=== PATIENT | female | born 1990 | race Caucasian/White ===

== ENCOUNTER 2019-05-26 08:32 | Inpatient (IN) | payer OTHER, SELFPAY ==
[2019-05-26] VITALS (83 sets, daily range): BP systolic 116–160; BP diastolic 61–101; PULSE 90–132; RESP 18; TEMP 36.6–37.5; O2SAT 98–100; BMI 37.0
[2019-05-26] MEDS: LACTATED RINGERS 1,000 ML 125 ML IV CONT ×3 (09:21→12:31)
[2019-05-26 09:35] LABS: Basophils Percent Auto 0.2 % (0.2-1.2); Eosinophils Absolute Auto 0.1 K/mm3 (0-0.3); Eosinophils Percent Auto 0.4 % (0-4.4); Hematocrit 33.4 % (37.0-47.0); Immature Granulocyte Percent A 0.8 % (0-0.5); Lymphocytes Absolute Auto 1.71 K/mm3 (0.9-3.2); Lymphocytes Percent Auto 12.9 % (18.3-44.2); Mean Corpuscular HGB Conc 32.9 g/dl (32-36); Mean Corpuscular Volume 81.9 fl (80-100); Mean Platelet Volume 11.4 fl (7.4-10.4); Monocytes Absolute Auto 0.8 K/mm3 (0.1-0.6); Monocytes Percent Auto 5.7 % (2.6-8.5); Neutrophils Absolute Auto 10.6 K/mm3 (1.3-6.7); Platelet Count Result 216 k/mm3 (150-375); Red Blood Count 4.08 M/mm3 (4.2-5.4); Red Cell Distribution Width 13.7 % (11.5-14.5); White Blood Count 13.2 K/mm3 (4.5-10.0)
--- NOTE | 2019-05-26 11:38 | WPDOBADMIT ---
Obstetrics - Admit Note Admission Note: record reviewed. Pertinent additions to the history and/or any subsequent changes in the physical findings that are not consistent with the expected course of the were found. Additions to the history and/or subsequent changes in the physical findings follow. 28 yo comes to L & D at 39 weeks 6 days, confirmed by MAYURI of 05/27/2019 in labor complicated with hypothyroidism, anxiety.GBS negative AROM performed Cx: /-1 comfortable with epidural status reassuring Expectant managmenty of labor
[2019-05-26] MEDS: MISOPROSTOL 200 MCG TABLET 1000 MCG (14:00)
--- NOTE | 2019-05-26 14:04 | PM.OBPRVD ---
OB - Delivery Note Procedure Delivery date: 05/26/19 Intrapartal events: None Induction method: none Delivery augmentation: rupture of membranes Delivery monitor: external FHT and external uterine Route of delivery: Laceration description: Vaginal - 2nd Degree (left side sulcus tear) Delivery repair: vicryl (3-0) Specimen: Yes Estimated blood loss (mL): 600 Anesthesia type: Epidural Disposition: floor Complications: PPH Baby Date of : 05/26/19 Weeks of gestation at delivery: 39 gender: Female Weight (pounds): 8 Weight (ounces): 10 presentation: vertex position: Left Occiput Anterior Placenta delivery description: Spontaneous cord vessel description: 3 Vessels and Nuchal Cord (x 1) score one minute: 8 score five minutes: 9
--- NOTE | 2019-05-26 14:09 | PM.OBDSVD ---
DS: Diagnosis Admitting Diagnosis Admitting Diagnosis: Labor OB - DS: Summary OB Procedures : None OB Procedures Intrapartum: Spontaneous Vag Delivery and Other (PPH. blood loss 600 ml) OB Procedures: : None Peripartum Data Delivery Method: Natural Vaginal Laceration description: Vaginal - 2nd Degree (left vaginal sulcus tear) complications: none Time Spent with Patient Time attestation: Total time spent providing and/or coordinating discharge services: DS: Data Data Completed and Pending Labs on day of discharge: Labs from last 24 hours 05/26/19 05/26/19 05/26/19 08:54 08:53 08:53 WBC 13.2 H RBC 4.08 L Hgb 11.0 L Hct 33.4 L MCV 81.9 MCH 27.0 MCHC 32.9 RDW 13.7 Plt Count 216 MPV 11.4 H Immature Gran % (Auto) 0.8 H Neut % (Auto) 80.0 H Lymph % (Auto) 12.9 L [place] % (Auto) 5.7 Eos % (Auto) 0.4 Baso % (Auto) 0.2 Lymph # (Auto) 1.71 [place] # (Auto) 0.8 H Eos # (Auto) 0.1 Baso # (Auto) 0.0 Abs Immat Gran (auto) 0.10 H Absolute Neuts (auto) 10.6 H Absolute Nucleated RBC 0.0 Nucleated RBC % 0.0 RPR Pending Blood Type O Positive Antibody Screen Negative Discharge Plan Discharge Discharge Medications: No Action citalopram 10 mg Tablet 10 mg PO DAILY RF: 0 levothyroxine 50 mcg Tablet 50 mcg PO DAILY RF: 0 PNV cmb#[id number]-ferrous fumarate-FA [] 28 mg iron- 800 mcg Tablet 1 tablet PO DAILY RF: 0 Date of admission: 05/26/19 08:32 Primary Care Provider: Rashard Mejia Admitting Provider: Rashard Mejia Attending physician on admission: Rashard Mejia
[2019-05-26] MEDS: BENZOCAINE 20% AER SPR (*SP) 56 GM CAN 1 SPRAY TOPICAL (17:09)
[2019-05-26] MEDS: IBUPROFEN 600 MG TABLET PO (17:10)
[2019-05-26] MEDS: DOCUSATE SODIUM 100 MG CAPSULE PO (17:10)
[2019-05-26] MEDS: DIBUCAINE 1% OINTMENT 30 GM TUBE 1 APPLIC TOPICAL (17:10)
[2019-05-26] MEDS: WITCH HAZEL 40 PADS 1 PAD TOPICAL (17:11)
[2019-05-26] MEDS: LANOLIN (LANSINOH) 7.5 GM CREAM 1 APPLIC TOPICAL (17:11)
--- NOTE | 2019-05-26 17:32 | NBADM ---
Patient transferred to post room #283 per julian. Support person present. Oriented to unit, room, information board, rooming in, admission packet and security measures. Patient verbalizes understanding.
[2019-05-27] MEDS: IBUPROFEN 600 MG TABLET PO ×3 (04:57→21:41)
[2019-05-27 06:03] LABS: Hematocrit 28.6 % (37.0-47.0); Hemoglobin 9.2 g/dL (12.0-15.0)
--- NOTE | 2019-05-27 07:39 | WPDANLDPN2 ---
Anes-Prog Note L&D Date/Time: 05/27/19 07:39 Comfortable throughout: labor and delivery Neuraxial method: epidural Epidural/Spinal procedure site: clean & non-tender Neuro status: Neuro function grossly intact. Cardiovascular status: normal Respiratory status: normal Airway patency: baseline Mental status: baseline Post-Op hydration status: normal Vital Signs: Last Vital Signs Temp 37.3 C 05/26/19 20:06 Pulse 90 05/26/19 20:06 Resp 18 05/26/19 20:06 BP 135/71 05/26/19 20:06 Pulse Ox 99 05/26/19 20:06 I/O: Intake & Output 05/26/19 05/26/19 05/27/19 15:59 23:59 07:59 Intake Total 2500 1000 Output Total 600 Balance 1900 1000 Post-procedural complaints: none Patient feedback: Patient satisfied with anesthetic care.
--- NOTE | 2019-05-27 08:00 | PC.NURSE ---
PT introductions made and plan of care discussed per post , pain management, breast feeding, daily care activities. PT verbalized understanding of such care.
[2019-05-27 08:15] VITALS: BP 147/87; PULSE 103; RESP 16; TEMP 37.1; O2SAT 98
--- NOTE | 2019-05-27 08:16 | PM.OBPNVD ---
OB - PN: Subj Subjective Date/time seen: 05/27/19 08:16 Patient comments: pain well controlled and tolerating diet [place] baby status: doing well and nursing well [place] feeding status: exclusively breast feeding OB - PN: Obj Data Labs CBC & Chem 7: 05/27/19 04:43 Labs: Laboratory Results - last 24 hr 05/26/19 05/26/19 05/27/19 08:53 08:54 04:43 WBC 13.2 H RBC 4.08 L Hgb 11.0 L 9.2 L Hct 33.4 L 28.6 L MCV 81.9 MCH 27.0 MCHC 32.9 RDW 13.7 Plt Count 216 MPV 11.4 H Immature Gran % (Auto) 0.8 H Neut % (Auto) 80.0 H Lymph % (Auto) 12.9 L [place] % (Auto) 5.7 Eos % (Auto) 0.4 Baso % (Auto) 0.2 Lymph # (Auto) 1.71 [place] # (Auto) 0.8 H Eos # (Auto) 0.1 Baso # (Auto) 0.0 Abs Immat Gran (auto) 0.10 H Absolute Neuts (auto) 10.6 H Absolute Nucleated RBC 0.0 Nucleated RBC % 0.0 Blood Type O Positive Antibody Screen Negative OB - PN A/P Plan day: 1 Plan: routine care Time Spent With Patient Time: Total time spent is greater than 50% in coordination of care (as documented) at patient's floor/unit and/or counseling patient: Time with patient: less than 15 minutes Review of Systems Constitutional: Constitutional: Reports no additional constitutional complaints Cardiovascular: Cardiovascular: Reports no additional cardiovascular complaints Respiratory: Respiratory: Reports no additional respiratory complaints Gastrointestinal: Gastrointestinal: Reports no additional gastrointestinal complaints Exam Const: General: comfortable, no acute distress, alert and awake Resp: Effort & Inspection: normal respiratory effort Cardio: Rate: regular rate GI: Auscultation: normal bowel sounds
[2019-05-27] MEDS: POLYSACCHARIDE IRON COMPLEX 150 MG CAPSULE PO ×2 (08:28→18:18)
[2019-05-27] MEDS: MULTIVIT/MIN/PREN/FOL AC/IRON TABLET 1 TAB PO (08:28)
[2019-05-27] MEDS: DOCUSATE SODIUM 100 MG CAPSULE PO ×2 (08:29→18:18)
[2019-05-27 09:00] LABS: Rapid Plasma Reagin Non-Reactive (NonReactive)
--- NOTE | 2019-05-27 14:00 | PC.NURSE ---
Consulted with patient, mother reports she did not breastfeed first due to spinal headache. was sleepy and not eager to latch. Mother is pleased this infant is eagerly latching. Reviewed feeding cues, frequencies, duration of feedings, feeding elimination flow sheet, and signs of adequate intake. Demonstrated stimulation techniques to wake for feeding. Assisted with to breast. Reviewed positioning/alignment cross cradle, holding breast in U hold and guided asymmetrical latch on. Several attempts before infant was able to latch correctly. Infant was on and off at the beginning of the feeding, crying and making eager attempts. Observed infant may have a tight frenulum. Small amount of sweet ease to nipple and infant tongue to start latch. Within a few attempts, was able to latch correctly. nursed eagerly, with steady draws and occasional swallowing noted. Reviewed signs of a correct latch, effective nursing and suck swallow ratio. would slip down to shallow latch with short chewy suckling. Demonstrated how to adjust latch more deeply while feeding. Infant was able to maintain latch without discomfort to mother. Nipple care reviewed. Advised to stimulate during feeding to keep infant awake and effectively nursing and to hold breast during entire feeding to assist with maintaining deep latch. Instructed mother to call out for RN assistance if she is unable to latch infant for feeding or she has discomfort with nursing. Instructed feeding should be initiated three hours from start of last feeding or if feeding cues are noted before. Mother voiced understanding of information shared.
[2019-05-27 21:30] VITALS: BP 133/74; PULSE 90; RESP 14; TEMP 37; O2SAT 100
--- NOTE | 2019-05-28 07:00 | PC.NURSE ---
PT introductions made and plan of care discussed per post , pain management, breast feeding, daily care activities and pending discharge to home. PT verbalized understanding of such care.
[2019-05-28 08:55] VITALS: BP 144/91; PULSE 96; RESP 16; TEMP 36.6; O2SAT 100
--- NOTE | 2019-05-28 09:45 | PC.NURSE ---
Consult with pt., mother report she continues to struggle with latching and maintaining latch. Mother is tearful she has initiated supplementation. Assured mother to continue with supplementation as infant requires. Milk should transition in within a few days and may resolve fussiness with latch and feeding. Mother states will latch and draw back releasing latch several times during feeding. Suggested mother offer small amounts of supplement to calm and entice then transition to breast. Parents are comfortable and acknowledge feeding plan is doable at home. Mother will continue to latch each feeding using nipple shield, FOB will supplement while she pumps. Mother will offer EBM as part of next feedings supplementation. Advised to limit attempt/feeding to 15 minutes, then supplement ( increasing supplement as infant requires)and pump. Discussed when is more consistent and steady with nursing mother will then begin to decrease supplementation. Mother understands she may call or return for assist with LC as needed. Mother will discuss tongue frenulum with her ICP for possible frenulectomy. Mother is feeding as required and waking to feed if needed. Infant is currently meeting outcomes for weight, output, jaundice and feeding frequencies. Mother states she feels confident to continue above feeding plan at home. Reviewed transition to breast milk, signs of adequate intake, and engorgement/relief. Instructed to call ICP if intake/output less than required. Reviewed regular medications mother is taking. Information provided per Nisa. Reviewed community resources on the [employer] website and in the Mom/Baby guide. Information on outpatient services provided. Mother has no further questions at this time.
[2019-05-28 10:00] VITALS: PULSE 96; RESP 16; O2SAT 100
[2019-05-28] MEDS: LEVOTHYROXINE SODIUM 50 MCG TABLET PO (10:00)
[2019-05-28] MEDS: CITALOPRAM HYDROBROMIDE 10 MG TABLET PO (10:05)
[2019-05-28] MEDS: MULTIVIT/MIN/PREN/FOL AC/IRON TABLET 1 TAB PO (10:05)
[2019-05-28] MEDS: DOCUSATE SODIUM 100 MG CAPSULE PO (10:05)
[2019-05-28] MEDS: POLYSACCHARIDE IRON COMPLEX 150 MG CAPSULE PO (10:05)
[2019-05-28] MEDS: IBUPROFEN 600 MG TABLET PO (10:06)
[2019-05-28] MEDS: BENZOCAINE 20% AER SPR (*SP) 56 GM CAN 1 SPRAY TOPICAL (10:09)
[2019-05-28] MEDS: WITCH HAZEL 40 PADS 1 PAD TOPICAL (10:09)
[2019-05-28 13:29] VITALS: BP 114/67; PULSE 88; RESP 17; TEMP 37.2; O2SAT 99
--- NOTE | 2019-05-28 13:56 | PC.NURSE ---
On 05/28/19, the student, [ Chase Fong], provided care and completed [facility] documentation on this patient. I have reviewed the student's documentation and agree with the findings.
--- NOTE | 2019-05-28 14:00 | PC.NURSE ---
PT received discharge instructions per protocol and verbalized understanding of such instructions.
--- NOTE | 2019-05-28 14:46 | PC.NURSE ---
PT discharged to home ambulatory accompanied by spouse and and taken to waiting car. Follow up appts confirmed
[2019-05-29 10:50] VITALS: BP 136/86; PULSE 94; RESP 20; TEMP 36.6; O2SAT 100
== END 2019-05-28 14:46 | disposition home or self-care (01) | DRG 807 ==
LOC: ANHLDR 09:04 → ANHOB2 16:49
PROVIDERS: Admitting Provider Obstetrics & Gynecology; PCP Obstetrics & Gynecology; Visit Provider Obstetrics & Gynecology
DX: O99.284 Endocrine, nutritional and metabolic diseases complicating childbirth (principal); Z37.0 Single live birth; Z3A.39 39 weeks gestation of pregnancy; E03.9 Hypothyroidism, unspecified; O99.344 Other mental disorders complicating childbirth; F41.9 Anxiety disorder, unspecified; O70.1 Second degree perineal laceration during delivery; O69.81X0 Labor and delivery complicated by cord around neck, without compression, not applicable or unspecified
CPT/HCPCS: 36415; 85014; 85018; 85025; 86592; 86850; 86900; 86901; A9270; J2590; J2795; J3010; J7120

== ENCOUNTER 2024-10-08 15:29 | Outpatient (CLI) | payer BC, SELFPAY ==
--- NOTE | ~2024-10-08 | MR_ITS ---
EXAMINATION: MR brain/brain stem wo/w con DATE: 10/08/2024 16:14 INDICATION: Fasciculations TECHNIQUE: Magnetic resonance imaging (MRI) of the brain and brainstem was performed without and with 18 mL Multihance intravenous contrast. Sequences included sagittal and axial T1-weighted SE, axial d iffusion-weighted FS SE, axial 3D SWAN, axial T2-weighted FLAIR, and axial T2-weighted FSE. Postcontr ast axial and coronal T1-weighted SE was obtained. Apparent diffusion coefficient (ADC) maps were cre ated. COMPARISON: None. FINDINGS: There are no areas of restricted diffusion to suggest acute infarction. No intracranial hemorrhage or abnormal intracranial mass lesion. There are no intraparenchymal signal abnormalities seen on the ot her pulse sequences. The ventricles are symmetric and normal in size. There are no abnormal extra-axi al fluid collections. Flow voids are seen in the cerebral arteries on the T2-weighted sequences consi stent with their expected patency. Visualized orbits and soft tissues are unremarkable. There are no areas of abnormal enhancement on the post contrast images. IMPRESSION: 1. Normal brain MR. Reviewed, dictated and finalized at location B. IMPRESSION: 1. Normal brain MR.
--- OUTSIDE RECORDS SUMMARY | 2024-10-08 15:35 | XMS_ITS | Clinical Summary ---
Author Organization [facility] Address [address] [place] [id number] Care Team Providers Care Manager Continuous Improvement Name Role Phone Bianca Valdivia Primary Care Pr ovider Allergies Active Allergy Reactions Criticality Noted Date Comments Erythromycin Base Rash Medium 11/11/2019 Medications levothyroxine (SYNTHROID) 50 mcg tablet TK 1 T PO QD 0 Active citalopram (CeleXA) 40 mg tablet TK 1 T PO QD 0 Active ALPRAZolam (XANAX) 0.25 mg tablet TK 1 T PO TID PRN 0 Active desogestreL-ethiny l estradioL (Isibloom) 0.15-0.03 mg per tablet Isibloom 0.15 mg-0.03 mg tablet TK 1 T PO QD Active FLUoxetine 10 mg tablet/capsule Take 1 tablet/capsul e (10 mg total) by mouth daily Active losartan (COZAAR) 25 mg tablet Take 1 tablet (25 mg total) by mouth daily Active methylphenidate ER (CONCERTA) 36 mg CR tabletIndications: Attention-Deficit Hyperactivity Disorder Take 1 tablet (36 mg total) by mouth every morning Active Active Problems Problem Noted Date Diagnosed Date Hyperlipidemia LDL goal <130 11/11/2019 Elevated BP without diagnosis of hypertension Family history of bicuspid aortic valve 11/11/19 20 Arthralgia of hip 05/23/2016 Myofascial pain 05/23/2016 Pain in female pelvis 05/23/2016 state 05/23/2016 Post-void dribbling 05/23/2016 Encounters Date Type Department Care Team Description 10/08/2024 11:00 AM CDT Office Visit [facility] Gastroenterology at [address] [phone] Riky Hooper MD Rectal bleeding (Primary Dx) from Last 3 Months Surgical History Surgery Date Site/Laterality Comments ND COLONOSCOPY FLX DX W/ONI J SPEC WHEN PFRMD Colonoscopy (Fiberoptic) - (Added by Conv) WISDOM TOOTH EXTRACTION Oral Surgery Tooth Extraction [place] Tooth - (Added by Conv) Medical History Medical History Date Comments Personal history of other en docrine, nutritional and metabolic disease History of thyroid d isease - (Added by Conv) Thyroid disease Anxiety and depression Family History Medical History Relation Name Comments No Known Problems Brother No Known Problems Father Fibromyalgia Mother Family history of fibromyalgia - (Added by Conv) Thyroid disease Mother Family histo ry of thyroid disease - (Added by Conv) Relation Name Status Comments Brother Alive Father Alive Mother Alive Social History Tobacco Use Types Packs/Day Years Used Date Smoking Tobacco: Never Smokeless Tobacco: Never Tobacco Cessation:Counseling Given: Not Answered Alcohol Use Standard Drinks/Week Comments Yes 3 (1 standard drink = 0.6 oz pur e alcohol) occassional AUDIT-C Answer Date Recorded Q1: How often do you have a drink containing alc ohol? Monthly or less 10/08/2024 Q2: How many drinks containi ng alcohol do you have on a typical day when you are drinking? 1 or 2 10/08/2024 Q3: How often do you have si x or more drinks on one occasion? 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 [employer] Gender Identity Not on file Sexual Orientation Not on file Obstetrics History Last Filed Vital Signs Vital Sign Reading Time Taken Comments Blood Pressure 142/90 10/08/2024 10:57 AM CDT Pulse 98 10/08/2024 10:57 AM CDT Temperature 36.7 C (98 F) 11/13/2019 2:55 PM CDT Respiratory Rate - - Oxygen Saturation 99% 10/08/2024 10:57 AM CDT Inhaled Oxygen Concentration - - Weight 91.4 kg (201 lb 6.4 oz) 10/08/2024 10:57 AM CDT Height 162.6 cm (5' 4) 10/08/2024 10:57 AM CDT Body Mass Index 34.57 10/08/2024 10:57 AM CDT Plan of Treatment Health Maintenance Due Date Last Done Comments Cervical Cancer Screening 1988 Depression Screening 1988 Hepatitis C Screening 1988 Varicella Vaccines (1 of 2 - 13+ 2-dose series) 2001 Hepatitis B Screening 2006 Regular Well Visit/Exam 18-64 2006 Influenza Vaccine (#1) 2024 03/02/2016 DTaP/Tdap/Td Vaccine (2 - Td or Tdap) 03/02/2026 03/02/2016 HPV Vaccines Aged Out No longer eligi ble based on patient's age to complete this topic Pneumococcal vaccine <65 Aged Out No longer eligible based on patient's age to complete this topic Insurance [employer] [place] [employer] [place] Care Teams Manager Continuous Improvement Relationship Specialty Start Date End Date Bianca Valdivia PA PCP - General Physician Assistant Director Of Financial Aid 04/14/19
--- OUTSIDE RECORDS SUMMARY | 2024-10-08 15:35 | XMS_ITS | Referral Summary ---
Author Organization [facility] Address [address] [place] [phone] Care Team Providers Care Ship Pilot Dispatcher Name Role Phone KelswatiBianca Primary Care Pr ovider Encounters Date Type Department Care Team Description 10/08/2024 11:00 AM CDT Office Visit [facility] Gastroenterology at [address] [phone] Riky Hooper MD Rectal bleeding (Primary Dx) from Last 3 Months Allergies Active Allergy Reactions Criticality Noted Date [...] pelvis 05/23/2016 state 05/23/2016 Post-void dribbling 05/23/2016 Social History Tobacco Use Types Packs/Day Years [...] on file 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
--- OUTSIDE RECORDS SUMMARY | 2024-10-08 15:35 | XMS_ITS | Data Portability ---
Author Organization [facility] Address [address] [place] [address] Care Team Providers Care Head Bookkeeper Name Role Phone JONAS BECKFORD Primary Care Provider Unavailab le Assessment Encounter Date Assessment Date Assessment LastModified by Organization Details LastModified Time 09/14/2024 09/14/2024 Up to date on eye appt from earlier in year. Not available 09/14/2024 11:47:31 Plan of Treatment Reminders Order Date Submit Date Provider Last Modified By Organization Details Last Modified Time Details Appointments None recorde d. Lab magnesi um, serum or plasma 2024 025 [facility], [address], [address], 17:04:13 zinc, serum or plasma 2024 025 [facility], [address], [address], 17:04:12 vitamin B12 + folate, serum or blood 2024 025 [facility], [address], [address], 17:04:13 CMP, serum or plasma 2024 025 [facility], [address], [address], 5 17:04:13 CBC w/ auto diff 2024 025 [email or web address], [facility] [address], [address], 5 17:04:13 TSH + free T4, serum 2024 025 [facility], [facility] [address], [address], 5 17:04:12 vitamin D, 25-hydr oxy, total, serum 2024 025 [facility], [facility] [address], [address], 5 17:04:12 titin Ab, QL, IA, serum 2024 025 [email or web address] [facility], [address] [address], [place], [address], 5 09:53:36 lipid panel, serum 2023 024 [email or web address] [facility], [facility] [address], [address], 5 14:46:43 insulin , serum 2023 024 [email or web address] [facility], [facility] [address], [address], 5 14:46:43 HbA1c (hemogl obin A1c), blood 2023 024 [email or web address] [facility], [facility] [address], [address], 5 14:46:44 CBC w/ auto diff 2023 024 [email or web address] [facility], [address] [address], [place], [address], 5 14:46:43 CMP, serum or plasma 2023 024 [email or web address], [address] [address], [place], [address], 5 14:46:44 TSH + free T4, serum 2023 024 [email or web address], [address] [address], [place], [address], 5 14:46:43 cortiso l, serum or plasma 2023 024 [email or web address] [facility], [address], [address], 4 10:53:55 insulin , serum 2023 024 [email or web address] [facility], [address], [address], 4 10:53:55 CBC w/ auto diff 2023 024 [email or web address] [facility], [address] [address], [place], [address], 4 10:53:55 CMP, serum or plasma 2023 024 [facility], [address] [address], [place], [address], 4 10:53:55 vitamin B12 + folate, serum or blood 2023 024 [email or web address] [facility], [address] [address], [place], [address], 4 10:53:55 lipid panel, serum 2023 024 [facility], [address], [place], [address], 4 09:23:52 HbA1c (hemogl obin A1c), blood 2023 024 [email or web address] [facility], [address], [place], [address], 4 10:53:55 TSH + free T4, serum 2023 024 [facility], [address] [facility] [address], [place], [address], 4 09:23:52 Referral None recorde d. Procedures home sleep testing (PROC) 2024 025 [employer], [address] [facility], [address], [place], [address], 5 23:29:05 upper endosco py procedu re (EGD) (PROC) 2023 024 anna Hooper MD, [address] [address], [place], [address], 5 12:25:45 diagnos tic colonos copy (PROC) 2023 024 anna Hooper MD, [address] [address], [place], [address], 5 12:26:07 Surgeries None recorde d. Imaging MRI, brain, w/wo contras t 2024 025 [facility], [address], [address] [address], [place], [address], 5 17:05:26 US, david escobedo 2023 024 [facility] [address], [place], [address], 12:26:13 Medication Orders Zepboun d 2.5 mg/0.5 mL subcuta neous pen injecto r 2023 [id number], [address] [facility], [place], [place], [id number], 09:08:33 triamte rafael 37.5 mg-hydr ochloro thiazid e 25 mg tablet 2023 [facility] #[id number], [address] [facility], [place], [id number], 13:31:51 Patient TargetsNo targets recorded. Patient Instructions Encounter Date Encounter Id Patient Instructions Last Modified By Organization Details Last Modified Time 12/23/2023 [id number] A healthy lifestyle: care instructions Not available 12/23/2023 14:37:56 05/28/2024 [id number] A healthy lifestyle: care instructions Not available 05/28/2024 14:24:24 09/14/2024 [id number] A healthy lifestyle: care instructions Not available 09/14/2024 11:58:40 Reason for Referral None Reported. Results Created Date Observation Date Name Description Value Unit Range Abnormal Flag Note LastModifiedBy Organization Detail LastModifiedTime 10/02/1909/22/2024 home sleep testi ng (PROC ) No observ ation record ed. [email or web address] [address] [facility], [address], [place], [address], 10/02/2024 08:53:44 Result Notes None recorded. Problems Name Problem SNOMED Code Status Onset Date Resolution Date Notes Provider Name and Address Organization Details Recorded Time Attention deficit hyperactivi ty disorder 038544656 Active 2023 Karina Hernandez [facility], [place] - [facility] 03/05/202 4 16:00:53 Mixed anxiety and depressive disorder 660780167 Active 2023 Karina Hernandez null, [place] - [facility] 4 16:01:02 Hypothyroid ism 86186083 Active 2023 ANDREW Mccormick Attn: Accountin g,[address] [facility], [place], [address], [place] - [facility] 4 19:06:55 Body mass index 30+ - obesity 686999987 Active 2023 ANDREW Mccormick Attn: Accountin g,[address] [facility], [place], [address], [place] [facility] 5 11:46:38 Mixed hyperlipide xochilt 681613282 Active 2023 ANDREW Mccormick Attn: Accountin g,[address] [facility], [place], [address], [place] - [facility] 4 14:25:44 Benign essential hypertensio n 1105393 Active 2023 ANDREW Mccormick Attn: Accountin g,[address] [facility], [place], [address], [place] [facility] 4 14:25:45 Insulin resistance 044354662 Active 2023 ANDREW Mccormick Attn: Accountin g,[address] [facility], [place], [address], [place] - [facility] 4 14:25:46 Long-term drug therapy Active 2023 ANDREW Mccormick Attn: Accountin g,[address] [facility], [place], [address], [place] [facility] 4 14:37:48 Obesity 180335254 Active 2023 ANDREW Mccormick Attn: Accountin g,[address] [facility], [place], [address], [place] [facility] 4 14:37:49 Acid reflux 499061129 Active 2023 ANDREW Mccormick Attn: Char black,[address] [facility], [place], [place], [address] [place] [address] 2, [place] - [facility] 4 16:44:07 Occult blood detected in feces 96560687 Active 2023 ANDREW Mccormick Attn: Char g,[address] [facility], [place], [place], [address] [place] [address], [place] - [facility] 4 16:44:18 Family history of Cardiomyopa thy 286472554 Active 2024 ANDREW Mccormick Attn: Accountwaqar g,[address] [facility], [place], [place], [address] [place] [address], [place] - [facility] 5 08:09:36 Positive screening for depression on PHQ-9 (Patient Health Questionnai re 9) 2051178891329 00 Active 2024 ANDREW Mccormick Attn: Kevinwaqar black,[address] [place], [place], [address] [place] [address], [place] - [facility] 5 08:10:14 Obese class I 9797738645173 07 Active 2024 ANDREW Mccormick Attn: Kevinwaqar black,[address] [place], [place], [address] [place] [address], [place] - [facility] 5 11:46:37 Fatigue 32212002 Active 2024 ANDREW Mccormick Attn: Kevinwaqar black,[address] [place], [place], [address] [place] [address], [place] - [facility] 5 17:14:03 Suspected respiratory disease 337008645 Active 2024 ANDREW Mccormick Attn: Accountwaqar g,[address] [place], [place], [address] [place] [address], [place] - [facility] 5 17:14:04 Twitching eye 509919620 Active 2024 ANDREW Mccormick Attn: Char g,[address] [place], [place], [address] [place] [address], [place] - [facility] 17:14:06 Problem Notes None recorded. Medical Equipment None Reported. Allergies No known drug allergies Medications Name Sig Start Date Stop Date Status Note LastModified by Organization Details LastModified Time doxycycline hyclate 100 mg capsule TAKE 1 CAPSULE BY MOUTH TWICE DAILY WITH FOOD FOR 10 DAYS 09/14 completed Not Available Not Available Not Available citalopram 10 mg tablet TAKE 1 TABLET BY MOUTH DAILY IN ADDITION TO 20 MG DAILY FOR A TOTAL OF 30 MG DAILY 06/10 completed Not Available Not Available Not Available Anucort-HC 25 mg suppository Insert 1 supposito ry twice a day by rectal route for 14 days. 09/14 completed Not Available Not Available Not Available lamotrigine 25 mg tablet Take 1 tablet every day by oral route for 38 days. 09/14 completed Not Available Not Available Not Available hydrocortis one 2.5 % topical cream with perineal applicator 07/20 completed Not Available Not Available Not Available alprazolam 0.25 mg tablet TAKE 1 TABLET BY MOUTH TWICE DAILY NEEDED active prn Not Available Not Available No t Available citalopram 20 mg tablet TAKE 1 TABLET BY MOUTH DAILY IN ADDITION TO 10 MG DAILY FOR A TOTAL OF 30 MG DAILY 06/10 completed Not Available Not Available Not Available levothyroxi ne 50 mcg tablet TAKE 1 TABLET BY MOUTH EVERY DAY IN THE MORNING active Not Available Not Available No t Available losartan 25 mg tablet TAKE 1 TABLET BY MOUTH DAILY 2024 active Not Available Not Available Not Avai lable triamterene 37.5 mg-hydrochl orothiazide 25 mg tablet Take 1 tablet every day by oral route in the morning. 06/19 completed Not Available Not Available Not Available ondansetron 4 mg disintegrat ing tablet DISSOLVE 1 TABLET ON THE TONGUE EVERY 6 HOURS NEEDED FOR NAUSEA 03/26 completed Not Available Not Available Not Available methylpheni date ER 18 mg tablet,exte nded release 24 hr TAKE 1 TABLET BY MOUTH DAILY 09/14 completed Not Available Not Available Not Available metformin ER 500 mg tablet,exte nded release 24 hr TAKE 1 TABLET BY MOUTH EVERY DAY AT DINNER 03/11 completed Not Available Not Available Not Available methylpheni date ER 36 mg tablet,exte nded release 24 hr TAKE 1 TABLET BY MOUTH DAILY active Not Available Not Available No t Available hydroxyzine pamoate 25 mg capsule TAKE 1 TO 2 CAPSULES BY MOUTH EVERY 8 HOURS NEEDED FOR ANXIETY 06/10 completed Not Available Not Available Not Available escitalopra m 10 mg tablet TAKE 1 TABLET BY MOUTH DAILY active Not Available Not Available No t Available escitalopra m 20 mg tablet TAKE 1 TABLET BY MOUTH DAILY 03/26 completed Not Available Not Available Not Available divalproex ER 250 mg tablet,exte nded release 24 hr TAKE 1 TABLET EACH MORNING AND 2 TABLET EACH NIGHT BY MOUTH 06/10 completed Not Available Not Available Not Available atomoxetine 40 mg capsule TAKE 1 CAPSULE BY MOUTH EVERY DAY 06/10 completed Not Available Not Available Not Available aripiprazol e 5 mg tablet TAKE 1 TABLET BY MOUTH EVERY NIGHT AT BEDTIME 12/22 completed Not Available Not Available Not Available aripiprazol e 2 mg tablet TAKE 1 TABLET BY MOUTH EVERY NIGHT AT BEDTIME 06/10 completed Not Available Not Available Not Available lisdexamfet amine 30 mg capsule TAKE 1 CAPSULE BY MOUTH DAILY 07/20 completed Not Available Not Available Not Available Vyvanse 20 mg capsule TAKE 1 CAPSULE BY MOUTH EVERY DAY 06/10 completed Not Available Not Available Not Available Vyvanse 40 mg capsule TAKE 1 CAPSULE BY MOUTH EVERY DAY 06/10 completed Not Available Not Available Not Available desvenlafax ine succinate ER 50 mg tablet,exte nded release 24 hr TAKE 1 TABLET BY MOUTH EVERY DAY 09/14 completed Not Available Not Available Not Available Rexulti 1 mg tablet TAKE 1 TABLET BY MOUTH EVERY NIGHT AT BEDTIME active Not Available Not Available No t Available Rexulti 2 mg tablet TAKE 1 TABLET BY MOUTH EVERY NIGHT AT BEDTIME 03/26 completed Not Available Not Available Not Available Zepbound 5 mg/0.5 mL subcutaneou s pen injector ADMINISTE R 5 MG UNDER THE SKIN EVERY WEEK 03/11 completed Not Available Not Available Not Available Zepbound 2.5 mg/0.5 mL subcutaneou s pen injector ADMINISTE R 2.5 MG UNDER THE SKIN EVERY WEEK 01/07 completed Not Available Not Available Not Available Vitals Date Recorded Systolic And Diastolic Provider Name and Address Organization Details Last Updated DateTime 05/28/2024 110/80 mm[Hg] ANDREW Mccormick Attn: Accounting,[address] [place], [address], [facility] 05/28/2024 14:24:45 Date Recorded Body height Body mass index (BMI) Body weight Respiratory rate Oxygen saturation Oxygen saturation in Arterial blood by Pulse oximetry Heart rate Systolic And Diastolic Provider Name and Address Organization Details Last Updated DateTime 163.2 cm 33.5 kg/m2 26767.7 g 18 /min 100 % 100 % 88 /min 128/82 mm[Hg] Can Rubin MA [facility] 14:03:25 Date Recorded Systolic And Diastolic Provider Name and Address Organization Details Last Updated DateTime 06/11/2023 140/90 mm[Hg] ANDREW Mccormick Attn: Accounting,[address] [place], [address], [facility] 06/11/2023 14:19:30 Date Recorded Body height Body mass index (BMI) Body weight Heart rate Respiratory rate Oxygen saturation Oxygen saturation in Arterial blood by Pulse oximetry Systolic And Diastolic Provider Name and Address Organization Details Last Updated DateTime 4 163.2 cm 32.7 kg/m2 01649.7 4 g 91 /min 18 /min 100 % 100 % 145/89 mm[Hg] Can Rubin MA [facility] 14:02:18 Date Recorded Respiratory rate Systolic And Diastolic Provider Name and Address Organization Details Last Updated DateTime 09/14/2024 16 /min 136/90 mm[Hg] ANDREW Mccormick Attn: Accounting, [place], [address], [facility] 09/14/2024 11:58:29 Date Recorded Body height Body mass index (BMI) Body weight Heart rate Oxygen saturation Oxygen saturation in Arterial blood by Pulse oximetry Systolic And Diastolic Provider Name and Address Organization Details Last Updated DateTime 5 163.2 cm 33.9 kg/m2 83050.9 6 g 89 /min 98 % 98 % 138/78 mm[Hg] Annamarie Sousa MA [facility] 5 11:33:23 Date Recorded Systolic And Diastolic Provider Name and Address Organization Details Last Updated DateTime 12/23/2023 130/80 mm[Hg] ANDREW Mccormick Attn: Accounting,[address] [place], [address], [facility] 01/05/2024 21:17:33 Date Recorded Body height Body mass index (BMI) Body weight Respiratory rate Oxygen saturation Oxygen saturation in Arterial blood by Pulse oximetry Heart rate Systolic And Diastolic Provider Name and Address Organization Details Last Updated DateTime 4 163.2 cm 34.8 kg/m2 64103.6 4 g 18 /min 100 % 100 % 88 /min 136/88 mm[Hg] Can Rubin MA [facility] 4 14:16:06 Date Recorded Systolic And Diastolic Provider Name and Address Organization Details Last Updated DateTime 03/26/2024 130/80 mm[Hg] ANDREW Mccormick Attn: Accounting,[address] [place], [address], [facility] 03/26/2024 11:49:19 Date Recorded Body height Body mass index (BMI) Body weight Respiratory rate Oxygen saturation Oxygen saturation in Arterial blood by Pulse oximetry Heart rate Systolic And Diastolic Systolic And Diastolic Provider Name and Address Organization Details Last Updated DateTime 4 163.2 cm 32.2 kg/m2 87462.9 6 g 18 /min 99 % 99 % 75 /min 130/82 mm[Hg] 126/72 mm[Hg] Can Rubin MA [facility] 4 11:14:40 Social History Question Answer Notes LastModified by Organizat ion Details LastModified Time Tobacco Smoking Status Never Smoker Can Rubin MA null, [facility] 06/11/2023 14:01:02 Do You Have An Advance Directive? No Information not available 12/23/2023 Are You Blind Or Do You Have Difficulty Seeing? No Information not available 06/11/2023 What Is Your Level Of Caffeine Consumption? Heavy Everyday Information not available 06/11/2023 In The 14 Days Before Symptom Onset, Have You Had Close Contact With A Laboratory-confir med COVID-19 While That Case Was Ill? No Information not available 06/11/2023 In The 14 Days Before Symptom Onset, Have You Had Close Contact With A Person Who Is Under Investigation For COVID-19 While That Person Was Ill? No Information not available 06/11/2023 Have You Been To An Area Known To Be High Risk For COVID-19? No Information not available 06/11/2023 Are You Deaf Or Do You Have Serious Difficulty Hearing? No Information not available 06/11/2023 What Type Of Diet Are You Following? REGULAR Information not available 06/11/2023 Are There Any Guns Present In Your Home? No Information not available 06/11/2023 What Was The Date Of Your Most Recent Tobacco Screening? 09/14/2024 Information not available 09/14/2024 What Is Your Relationship Status? Information not available 05/28/2024 Do You Use Your Seat Belt Or Car Seat Routinely? Yes Information not available 06/11/2023 Do You Have Smoke And Carbon Monoxide Detectors In Your Home? Yes Information not available 06/11/2023 Do You Use Sunscreen Routinely? Yes Information not available 06/11/2023 Has Tobacco Cessation Counseling Been Provided? No Information not available 06/11/2023 Sex: Female Functional Status Question Answer Note LastModified by Organizat ion Details LastModified Time Do you use any illicit or recreational drugs? No Information not available 06/11/2023 Do you or have you ever used any other forms of tobacco or nicotine? No Information not available 12/23/2023 What is your level of alcohol consumption? Occasional Information not available 06/11/2023 Are you currently employed? Yes Information not available 05/28/2024 Are you able to care for yourself? 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 Information not available 09/14/2024 What is your exercise level? Occasional Information not available 06/11/2023 Mental Status Question Answer Note LastModified by Organization D etails LastModified Time Do you feel stressed (tense, restless, nervous, or anxious, or unable to sleep at night)? [id number] Information not available 03/26/2024 Family History Relationship Description Onset Age of this Age Resolved Age Notes LastModified by Organization Details LastModified Time Paternal Aunt Malignant tumor of breast [email or web address] Not available 2023 14:11:57 Father Depressive disorder [email or web address] Not available 2023 14:29:32 Mother Depressive disorder [email or web address] Not available 2023 14:29:32 Mother Heart disease [email or web address] Not available 2023 14:29:40 Brother Heart disease tcarterma Not available 2023 14:11:38 Brother Transplantat ion of heart tcarterma Not available 14:00:22 Medical History Condition Response Coronary Artery Disease N Other N Atrial Fibrillation N High Blood Pressure N Thyroid Problems Y Kidney or Bladder Problems N Depression Y COPD N Blood Clots N GI Problems N Skin Problems N Anemia N Heart Attack (NE) N Diabetes N Anxiety Disorder Y Muscle, Joint, or Bone Problems N Seizures/Epilepsy N Acid Reflux (GERD) N Cancer N Stroke N Allergies N Asthma N High Cholesterol Y Hepatitis N Liver Disease N Headaches N Osteoporosis N Heart Failure N Gynecological History Statement/Question Response Flow Moderate Date of LMP 03/18/2024 Menses Monthly Y Duration of Flow (days) 4 Current Control Method None LMP Unknown Obstetrics History GPAL:G 2 P 2 0 0 2 Type Value Multiple Births 0 Full Term 2 Induced 0 Spontaneous 0 Premature 0 Living 2 Ectopics 0 Total 2 Immunizations Vaccine Type Date Status Note Provider Nam e and Address Organization Details Recorded Time Tdap 03/02/2016 BETTE Tenorio, [facility] 03/25/2024 13:04:49 Influenza, split virus, quadrivalent, PF 03/02/2016 completed BETTE Gore, [place] - [facility] 03/25/2024 13:04:49 Past Encounters Encounter ID Performer Location Encounter Start Date Encounter Closed Date Diagnosis/Indication Diagnosis SNOMED-CT Code Diagnosis ICD10 Code Diagnosis Note [id number] Jl Frances MD [facility] [address] [place] [address] 06/11/2023 13:34:51 06/11/2023 16:00:11 Adult health examination 778850627 Z00.01 new pt well exam completed. Hypothyroidism 29007015 E03.9 on thyroid supplement and due for updated TFTs Adult atte ntion deficit hyperactivity disorder 246560597 F90.9 stable on vyvanse 30mg daily. Mixed anxi ety and depressive disorder 150154890 F41.8 pt is feeling improved on aripiprazo le 5mg half daily, lexapro 10mg daily Long-term drug therapy 919225466 Z79.899 routine CBC, CMP and B12, folate due Weight gain 5274804 R63. 5 screening cortisol and insulin ordered. Diabetes m ellitus screening 767441620 Z13.1 a1c screening due Cholesterol screening 27 4721288 Z13.220 fasting lipids due. Elevated blood-pressure reading without diagnosis of hypertension 593043301 R03.0 mild elevation in BP. start low dose maxzide 37.5mg /25mg daily. [id number] Jl Frances MD [facility] [place], [place] [address] [place] [address] 12/23/2023 14:02:26 12/23/2023 15:18:07 Mixed anxiety and depressive disorder 300079520 F41.8 seeing psychiatri . Patient does feel stable on her new regimen Attention deficit hyperactivity disorder 688657015 F90.9 Patient is followed by Psychiatry and stable on methylphen idate ER 18 mg daily Hypothyroidism 70602911 E03.9 on thyroid supplement and due for updated TFTs Body mass index 30+ - obesity 014421149 Z68.34 start zepbound injectable therapy. no personal or family hx of Medullary thyroid cancer or MEN conditions . Obesity 039673241 E66.8 discussed healthy diet, exercise, controllin g carbohydra maria elena and added sugars in the diet Insulin resistance 60810 5000 E88.819 Screening insulin and A1c levels are due with insulin resistant history on prior labs Benign ess ential hypertension 9897531 I10 Blood pressure is stable on losartan 25 mg daily Mixed hyperlipidemia 267 980724 E78.2 Patient has been trying to manage her hyperlipid emia with dietary modificati ons. She will be due again in March for fasting labs Long-term drug therapy 009007646 Z79.899 routine CBC, CMP due [id number] Jl Frances MD [facility] [address] [place] [address] 03/26/2024 11:02:27 04/09/2024 09:06:58 Acid reflux 169640275 K21.9 Patient can increase Pepcid to twice daily but for meals. Refer for upper endoscopy procedure for persistent acid reflux now with vomiting Vomiting 240069482 R11.1 0 Check ultrasound of the gallbladde r Occult blo od detected in feces 43063945 R19.5 Refer for diagnostic colonoscop y with consistent sporadic blood in the stool Mixed hyperlipidemia 267 935931 E78.2 Patient is controllin g cholestero l with dietary modificati ons Insulin resistance 72946 5000 E88.819 History of insulin resistance reviewed. Patient is continuing healthy diet changes Long-term drug therapy 348710480 Z79.899 Labs are up-to-date Benign ess ential hypertension 5741454 I10 Blood pressure is stable on losartan 25 mg daily [id number] Jl Frances MD [facility] [address] [place] [address] 05/28/2024 13:44:05 05/28/2024 14:41:43 Body mass index 30+ - obesity 521570081 Z68.33 Patient had to stop Zepbound therapy due to side effects. BMI is 33.3 Obesity 088768760 E66.9 discussed healthy diet, exercise, controllin g carbohydra maria elena and added sugars in the diet Family his tory of Cardiomyopathy 491386351 Z82.49 Requested antibody testing for her family history of cardiomyop athy has been ordered Blurring o f visual image 988523189 H53.8 All visual field changes and blurring of vision should be evaluated by the eye doctor Dry eyes 043253542 H04.1 23 Patient should continue follow up with the eye doctor for any further orders regarding her dry eyes Positive s creening for depression on PHQ-9 (Patient Health Questionnaire 9) 1910501048 15320 Z13.31 Patient scored a 15 on her screening today. She is seeing a psychiatry specialist and is on lamotrigin e, Lexapro, alprazolam , methylphen idate and Rexulti Benign ess ential hypertension [id number] Blood pressure is stable on losartan 25 mg daily [id number] Jl Frances MD [facility] - Sarthak Quintanilla [address] [place] [address] 09/14/2024 11:27:01 09/14/2024 17:21:17 Body mass index 30+ - obesity [id number] Z68.33 Patient had to stop Zepbound therapy due to side effects. BMI is 33.3 Obese class I [id number] E66.811 discussed healthy diet, exercise, controllin g carbohydra maria elena and added sugars in the diet Twitching eye [id number] R25.3 mainly top lids, but can be in brow and lower lid too. Send for MRI of the brain with and without contrast and also check a magnesium and zinc level. Fatigue [id number] R53.82 Screening vitamin B12, folate, CMP and CBC, thyroid function testing and vitamin-D labs. Suspected respiratory disease [id number] R29.818 Witnessed sleep apnea at night by her spouse accompanie d with significan t chronic fatigue that is not improving and is a chronic concern. We will send her for a home sleep study. Health Concerns Section Related Observation LastModified by Organization Detai ls LastModified Time None Recorded Concern Status LastModified by Organization Details LastModified Time None Recorded Advance Directives Directive N: Payers Insurance Date Sequence Insurance Name Policy Number Policy Nieves Covered Member ID Nieves Member ID Guarantor Name 09/18/2024 1 [place] [id number] Cathy Colon [id number] Cathy Colon Notes Date Note Type Note Provider Name and Address Organization Details Recorded Time 06/11/19 24 text/htm l Generic HPI TemplateReported bypatient.Notes:pt sees psychiatry routinely for anxiety/depression, ? mild bipolar and also underlying adhd. she is feeling improving on her new medicine regimenThyroidReported bypatient.Notes:pt is on levothyroxine 50mcg daily. ANDREW Mccormick Attn: Accounting,[address], [place], [address], [facility] 06/11/2023 20:56:31 12/23/19 24 text/htm l Generic HPI TemplateReported bypatient.Notes:pt sees psychiatry routinely for anxiety/depression, ? mild bipolar and also underlying adhd. she is feeling improving on her new medicine regimenHypertensionReported bypatient.Notes:Patient is stable on losartan 25 mg daily for hypertension managementThyroidReported bypatient.Notes:pt is on levothyroxine 50mcg daily. Patient would like to look into weight loss options with injectable therapy ANDREW Mccormick Attn: Accounting,[address], [place], [address], [facility] 01/05/2024 21:18:28 03/26/20 24 text/htm l HypertensionReported bypatient.Notes:Patient is stable on losartan 25 mg daily for hypertension managementThyroidReported bypatient.Notes:pt is on levothyroxine 50mcg daily. States that she is sick today sx states that she has been fatigue for about a few days now she has a runny nose, scratchy throat, no cough, no chest congestion,Some post nasal dripStates that she would also like to discuss int/ext hemorrhoids that are bleeding often and possible referral to Gi ANDREW Mccormick Attn: Accounting,[address], [place], [address], [facility] 04/07/2024 16:45:14 05/28/19 25 text/htm l Vision is blurry for a month on and off, worse end of day. she had full eye exam at eye doctor and no abnormality seen. usually around 5pm it's noticeable. Difficult to read book evening due to this blurry. Patient has a family history of cardiomyopathy and is wanting to have titin antibody testing. Blood pressure has been stable on losartan therapy For obesity patient had to stop Zepbound therapy due to significant GI side effects related to the injectable. She had a lot of abdominal pain and dyspepsia and nausea. ANDREW Mccormick Attn: Accounting,[address], [place], [address], [facility] 06/08/2024 08:11:26 09/15/19 25 text/htm l eye twitching bilaterally x 6 weeks. eye appts UTD. Patient has bilateral eye twitching and it is very problematic and symptomatic each day. It does not seem to be waxing or waning relating to decreasing her caffeine intake. She does have some baseline stress but nothing that is been exacerbated. She is concerned about having a lot of witnessed sleep apnea per her spouse and that associated with her chronic fatigue she is concerned if that may be contributing to the eye twitching that she is having. She is also worried about there being some other underlying cause that could be more severe. ANDREW Mccormick Attn: Accounting,[address], [place], [address], [facility] 09/17/2024 17:14:32 OBGyn Episode No OBEpisode recorded.
--- OUTSIDE RECORDS SUMMARY | 2024-10-08 15:35 | XMS_ITS | Encounter Summary ---
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 Gender Identity Not on file Sexual Orientation Not on file documented as of this encounter Last Filed Vital Signs Vital Sign Reading Time Taken Comments Blood Pressure 142/90 10/08/2024 10:57 AM CDT Pulse 98 10/08/2024 10:57 AM CDT Temperature - - Respiratory Rate - - Oxygen Saturation 99% 10/08/2024 10:57 AM CDT Inhaled Oxygen Concentration - - Weight 91.4 kg (201 lb 6.4 oz) 10/08/2024 10:57 AM CDT Height 162.6 cm (5' 4) 10/08/2024 10:57 AM CDT Body Mass Index 34.57 10/08/2024 10:57 AM CDT documented in this encounter Functional Status * Audit-C Score Answer Date of Assessment Author 2 10/08/2024 11:05 AM CDT Shara Kumar MA * Question Answer Date of Assessment Author Q1: How often do you have a drink containing alcohol? Monthly or less 10/08/2024 11:05 AM Caroline Cai MA Q2: How many drinks containing alcohol do you have on a typical day when you are drinking? 1 or 2 10/08/2024 11:05 AM Caroline Cai MA Q3: How often do you have six or more drinks on one occasion? Less than monthly 10/08/2024 11:05 AM Caroline Cai MA documented as of this encounter Plan of Treatment Not on file documented as of this encounter Visit Diagnoses Diagnosis Rectal bleeding- Primary Hemorrhage of rectum and anus documented in this encounter Historical Medications * This list may reflect changes made after this encounter. methylphenidate ER (CONCERTA) 36 mg CR tabletIndications:A ttention-Deficit Hyperactivity Disorder Take 1 tablet (36 mg total) by mouth every morning losartan (COZAAR) 25 mg tablet Take 1 tablet (25 mg total) by mouth daily FLUoxetine 10 mg tablet/capsule Take 1 tablet/capsul e (10 mg total) by mouth daily added in this encounter Care Teams Bale Breaker Operator Relationship Specialty Start Date End Date Bianca Valdivia PA PCP - General Physician Replanting Machine Operator 04/14/19 documented as of this encounter
--- OUTSIDE RECORDS SUMMARY | 2024-10-08 15:35 | XMS_ITS | Clinical Summary ---
Author Organization [facility] Address [address] [place] [address] Care Team Providers Care Crutcher Helper Name Role Phone Marley Posey DNP, RAYO Primary Care Provider + Source Comments PLEASE NOTE, if this patient is a minor, it may be UNLAWFUL to discuss sensitive information that is contained in these records (such as FAMILY PLANNING, MENTAL HEALTH or SUBSTANCE ABUSE) with the minor patient's parent or other person without the patient's specific authorization.[facility] Medications citalopram (CELEXA) 20 mg tablet Take 1 Tablet by mouth nightly at bedtime 30 Tablet 3 05/01/2022 Active citalopram (CELEXA) 10 mg tablet Take 1 Tablet by mouth once daily 30 Tablet 3 05/01/2022 Active hydrOXYzine pamoate (VISTARIL) 25 mg capsule TAKE 1 TO 2 CAPSULES BY MOUTH EVERY 8 HOURS NEEDED FOR ANXIETY 30 Capsule 07/02/2022 Active Active Problems Problem Noted Date Diagnosed Date Body mass index (BMI) 32.0-32.9, adult 1 Body mass index (BMI) 33.0-33.9, adult 1 Body mass index (BMI) 34.0-34.9, adult 1 Elevated blood pressure reading Situational stress Hypothyroidism (acquired) Anxiety and depression Melanotic macule of lip Financial difficulty Vertigo Major depressive disorder, r emission status unspecified, unspecified whether recurrent Encounter for test, result unknown Obesity Encounter for gynecological examination (general) (routine) with abnormal findings General counseling for prescription of oral cont raceptives Vaginal discharge test negative Contact with and (suspected) exposure to other communicable diseases Environmental and seasonal allergies Mixed anxiety and depressive disorder Major depressive disorder Stress Resolved Problems Problem Noted Date Diagnosed Date Resolved Date URI, acute 10/30/2021 Acute upper respiratory infection 10/30/2021 Social History Tobacco Use Types Packs/Day Years Used Date Smoking Tobacco: Never Smokeless Tobacco: Never Tobacco Cessation:Counseling Given: Not Answered Social Connections Answer Date Recorded Connectedness 0 12/20/2023 Financial Resource Strain Answer Date R ecorded Financial Resource Strain 0 2021 Stress Answer Date Recorded Stress 0 09/15/2021 Physical Activity Answer Date Recorded Physical Activity 0 09/15/2021 Food Insecurity Answer Date Recorded Food 0 01/02/2024 Transportation Needs Answer Date Record ed Transportation 0 09/15/2021 Housing Stability Answer Date Recorded Housing 0 09/15/2021 Safety and Environment Answer Date William rded Safety 0 09/15/2021 Utilities Answer Date Recorded Utilities 0 09/15/2021 Employment Answer Date Recorded Stress 0 12/20/2023 Comments Unknown Sex and Gender Information Value Date Recorded Sex Assigned at Not on file Legal Sex Female 11:43 AM PST Gender Identity Female 09/18/2021 7:05 AM PDT Sexual Orientation Straight 09/18/2021 7: 05 AM PDT Last Filed Vital Signs Vital Sign Reading Time Taken Comments Blood Pressure 133/83 09/07/2021 4:22 PM CDT Pulse 87 09/07/2021 4:22 PM CDT Temperature 37.1 C (98.7 F) 09/07/2021 4:22 PM CDT Respiratory Rate 16 09/07/2021 4:22 PM CDT Oxygen Saturation 100% 09/07/2021 4:22 PM CDT Inhaled Oxygen Concentration - - Weight 82.6 kg (182 lb) 05/01/2022 3:39 PM BAKERY [employer]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 Height 162.6 cm (5' 4) 05/01/2022 3:39 PM 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 Body Mass Index 31.24 05/01/2022 3:39 PM BAK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 Plan of Treatment Health Maintenance Due Date Last Done Comments Anxiety Screening 1988 Depression Monitoring 1988 HPV Screening 1988 Tobacco Screening 1988 Relationship Safety Screening/Counseling 08/23/2003 Imm-DTaP/Tdap/Td (1 - Tdap) 08/23/2007 Imm-Hepatitis B (1 of 3 - 19 + 3-dose series) 08/23/2007 Cpc-NKTAD-52 (1 - ) 12/08/2023 Pap Smear 01/03/2024 01/02/2021 Alcohol and Drug Screen 04/08/2024 Hypertension Screening (#1) 09/06/2024 Diabetes Screening 09/08/2024 09/08/2021, 0 01/05/2021, 07/14/2020 Imm-Influenza (#1) 2024 Cervical Cancer Screening 01/02/2026 Pap + HPV 01/02/2026 01/02/2021 HIV Screening Completed 09/08/2021 Hepatitis C Screening Completed 09/08/2021 Cervical Ablation/Cold-Knife Conization Discontinued Cervical Cryotherapy Discontinued Colposcopy Discontinued Endometrial Biopsy Discontinued Excision/Leep Discontinued HPV Genotyping Discontinued Vaginal Pap Discontinued Vulvoscopy Discontinued Procedures Procedure Name Priority Date/Time Associated Diagnosis Comments HIV 1/2 AG & AB W/RFLX (4TH GEN) Routine 09/08/2021 9:02 AM CDT HEPATITIS C AB W/RFLX HCV RNA, QT, RT PCR Routine 09/08/2021 9:02 AM CDT COMPREHENSIVE METABOLIC PANEL Routine 09/08/2021 9:02 AM CDT THIN PREP PAP + HPV RNA E6/E7 + C.TRACHOMATIS + N. GONORRHOEAE (Q) Routine 01/02/2021 4:51 PM CDT from Last 3 Months or Most Recently Relevant to Health Maintenance Results * HEPATITIS C AB W/RFLX HCV RNA, QT, RT PCR (09/08/2021 9:02 AM CDT) HEPATITIS C ANTIBODY NON-REACT GEENA NON-REACT GEENA 09/08/2021 9:02 AM CDT DATA CONVERSION SIGNAL TO CUT-OFF 0.05 <1.00 09/08/2021 9:02 AM CDT DATA CONVERSION Comment: HCV antibody was non-reactive. There is no laboratory evidence of HCV infection. In most cases, no further action is required. However, if recent HCV exposure is suspected, a test for HCV RNA (test code 46203) is suggested. For additional information please refer to http://education.questdiagnostics.com/faq/JMU56a7 (This link is being provided for informational/ educational purposes only.) 09/08/2021 9:02 AM CDT [facility] Provider Default LAB - BLOOD DRAW Final Res ult Performing Organization Address City/[facility]/ZIP Co de Phone Number DATA CONVERSION * HIV 1/2 AG & AB W/RFLX (4TH GEN) (09/08/2021 9:02 AM CDT) HIV AG/AB, 4TH GEN NON-REACT GEENA NON-REACT GEENA 09/08/2021 9:02 AM CDT DATA CONVERSION Comment: HIV-1 antigen and HIV-1/HIV-2 antibodies were not detected. There is no laboratory evidence of HIV infection. PLEASE NOTE: This information has been disclosed to you from records whose confidentiality may be protected by state law. If your state requires such protection, then the state law prohibits you from making any further disclosure of the information without the specific written consent of the person to whom it pertains, or as otherwise permitted by law. A general authorization for the release of medical or other information is NOT sufficient for this purpose. For additional information please refer to http://[employer]/faq/HHD845 (This link is being provided for informational/ educational purposes only.) The performance of this assay has not been clinically validated in patients less than 2 years old. 09/08/2021 9:02 AM CDT [facility] Provider Default LAB - BLOOD DRAW Final Res ult Performing Organization Address City/[facility] de Phone Number DATA CONVERSION * COMPREHENSIVE METABOLIC PANEL (09/08/2021 9:02 AM CDT) CREATININE, SERUM 0.64 0.50 - 1.10 mg/dL 09/08/2021 9:02 AM CDT DATA CONVERSION BILIRUBIN, TOTAL 0.7 0.2 - 1.2 mg/dL 09/08/2021 9:02 AM CDT DATA CONVERSION POTASSIUM, SERUM 3.8 3.5 - 5.3 mmol/L 09/08/2021 9:02 AM CDT DATA CONVERSION GLOBULIN, TOTAL 2.8 1.9 - 3.7 g/dL (calc) 09/08/2021 9:02 AM CDT DATA CONVERSION GLUCOSE 90 65 - 139 mg/dL 09/08/2021 9:02 AM CDT DATA CONVERSION Comment: Non-fasting reference interval ALKALINE PHOSPHATASE 54 31 - 125 U/L 09/08/2021 9:02 AM CDT DATA CONVERSION UREA NITROGEN, BLOOD (BUN) 13 7 - 25 mg/dL 09/08/2021 9:02 AM CDT DATA CONVERSION BUN/CREATININE RATIO NOT APPLICABLE 6 - (calc) 09/08/2021 9:02 AM CDT DATA CONVERSION CALCIUM, SERUM 9.7 8.6 - 10.2 mg/dL 09/08/2021 9:02 AM CDT DATA CONVERSION EGFR 136 > OR = 60 mL/min/1. 73m2 09/08/2021 9:02 AM CDT DATA CONVERSION A/G RATIO 1.6 1.0 - 2.5 (calc) 09/08/2021 9:02 AM CDT DATA CONVERSION EGFR 117 > OR = 60 mL/min/1. 73m2 09/08/2021 9:02 AM CDT DATA CONVERSION CARBON DIOXIDE (CO2) 24 20 - 32 mmol/L 09/08/2021 9:02 AM CDT DATA CONVERSION ALT (SGPT) 16 6 - 29 U/L 09/08/2021 9:02 AM CDT DATA CONVERSION AST (SGOT) 17 10 - 30 U/L 09/08/2021 9:02 AM CDT DATA CONVERSION ALBUMIN 4.5 3.6 - 5.1 g/dL 09/08/2021 9:02 AM CDT DATA CONVERSION CHLORIDE, SERUM 102 98 - 110 mmol/L 09/08/2021 9:02 AM CDT DATA CONVERSION PROTEIN, TOTAL 7.3 6.1 - 8.1 g/dL 09/08/2021 9:02 AM CDT DATA CONVERSION SODIUM, SERUM 136 135 - 146 mmol/L 09/08/2021 9:02 AM CDT DATA CONVERSION 09/08/2021 9:02 AM CDT [facility] Provider Default LAB - BLOOD DRAW Final Res ult DATA CONVERSION * THIN PREP PAP + HPV RNA E6/E7 + C.TRACHOMATIS + N. GONORRHOEAE (Q) (01/02/2021 4:51 PM CDT) COMMENT 01/02/2021 4:51 PM CDT DATA CONVERSION Comment: EXPLANATORY NOTE: The Pap is a screening test for cervical cancer. It is not a diagnostic test and is subject to false negative and false positive results. It is most reliable when a satisfactory sample, regularly obtained, is submitted with relevant clinical findings and history, and when the Pap result is evaluated along with historic and current clinical information. SOURCE Cervix 01/02/2021 4:51 PM CDT DATA CONVERSION LMP NONE GIVEN 01/02/2021 4:51 PM CDT DATA CONVERSION CLINICAL INFORMATION None given 01/02/2021 4:51 PM CDT DATA CONVERSION CHLAMYDIA TRACHOMATIS RNA, TMA NOT DETECTED NOT DETECTED 01/02/2021 4:51 PM CDT DATA CONVERSION NEISSERIA GONORRHOEAE RNA, TMA NOT DETECTED NOT DETECTED 01/02/2021 4:51 PM CDT DATA CONVERSION CHEMICAL HANDLER 01/03/20 4:51 PM CDT DATA CONVERSION Comment: CXP, CT(ASCP) Screening location: [place] [address] PREV. PAP NONE GIVEN 01/02/2021 4:51 PM CDT DATA CONVERSION HPV MRNA E6/E7 Not Detected Not Detected 01/02/2021 4:51 PM CDT DATA CONVERSION Comment: Methodology: Geek Squad Manager-Mediated Amplification This assay detects E6/E7 viral messenger RNA (mRNA) from 14 high-risk HPV types (16,18,31,33,35,39,45,51,52,56,58,59,66,68). The analytical performance characteristics of this assay have been determined by [employer]. The modifications have not been cleared or approved by the FDA. This assay has been validated pursuant to the CLIA regulations and is used for clinical purposes. For additional information, please refer to http://education.[employer]faq/KCZ953a5 (This link if provided for information/ educational purposes only.) INTERPRETATION/RESU LT 01/02/2021 4:51 PM CDT DATA CONVERSION Comment:Negative for intraep ithelial lesion or malignancy. STATEMENT OF ADEQUACY 01/02/2021 4:51 PM CDT DATA CONVERSION Comment: Satisfactory for evaluation. Endocervical/transformation zone component present. Partially obscuring inflammation Age and/or menstrual status not provided COMMENT 01/02/2021 4:51 PM CDT DATA CONVERSION Comment: The analytical performance characteristics of this assay, when used to test SurePath(TM) specimens have been determined by [employer]. The modifications have not been cleared or approved by the FDA. This assay has been validated pursuant to the CLIA regulations and is used for clinical purposes. For additional information, please refer to https://education.[employer]/faq/XZU139 (This link is being provided for information/ educational purposes only.) PREV. BX NONE GIVEN 01/02/2021 4:51 PM CDT DATA CONVERSION REVIEW CHEMICAL HANDLER 01/02/2021 4:51 PM CDT DATA CONVERSION Comment: KEVIN, CT(ASCP) Screening location: [address] [address] 01/02/2021 4:51 PM CDT [facility] Provider Default LAB - PATHOLOGY AND CYTOLO GY AMBULATORY Final Result DATA CONVERSION from Last 3 Months or Most Recently Relevant to Health Maintenance Insurance [place] Care Teams Crutcher Helper Relationship Specialty Start Date End Date Marley Posey DNP, RAYO [address] [facility] [place] [id number] PCP - General 09/18/21
== END 2024-10-08 15:30 | disposition home or self-care (01) ==
PROVIDERS: PCP Physician Assistant; Visit Provider Physician Assistant
DX: R25.3 Fasciculation (principal)
CPT/HCPCS: 70553; A9577

== ENCOUNTER 2024-12-18 08:38 | Outpatient (CLI) | payer OTHER, SELFPAY ==
--- NOTE | ~2024-12-18 | US_ITS ---
EXAMINATION: US abdomen complete, 12/18/2024 8:51 CDT HISTORY: L sided abd pain COMPARISON: None Technique: Vargas-scale and color Doppler images were obtained. Findings: LIVER: Moderate increased echogenicity of the liver. No liver lesions identified. . GALLBLADDER/BILIARY: Unremarkable.No cholelithiais, wall thickening or pericholecystic fluid. No biliary dilatation. CBD 4 mm. [place] sign negative. PANCREAS: Pancreas limited by bowel gas. SPLEEN: Spleen prominent measuring 14 cm.. KIDNEYS: Right Kidney: Right kidney 11 x 4.8 x 5.4 cm: Normal. Left Kidney: Left kidney 11.5 x 4.5 x 5.4 cm, normal. AORTA: Normal caliber aorta. IVC: Unremarkable. FREE FLUID: None. Impression: 1. Hepatic steatosis versus hepatocellular disease. 2. Mild splenomegaly Reviewed, dictated and finalized at location A. Impression: 1. Hepatic steatosis versus hepatocellular disease. 2. Mild splenomegaly
== END 2024-12-18 08:39 | disposition home or self-care (01) ==
LOC: MICIMG 08:39
PROVIDERS: PCP Physician Assistant; Visit Provider Physician Assistant
DX: R10.9 Unspecified abdominal pain (principal); K76.0 Fatty (change of) liver, not elsewhere classified
CPT/HCPCS: 76700

== ENCOUNTER 2025-02-19 12:41 | Outpatient (CLI) | payer OTHER, SELFPAY ==
--- NOTE | ~2025-02-19 | CT_ITS ---
PROCEDURE: [Procedure] INDICATION: Left-sided abdominal pain COMPARISON(S): None. TECHNIQUE: Multiplanar images of the abdomen and pelvis were obtained with intravenous contrast solution.. Diagnostic sensitivity is limited due to lack of oral contrast. Dose lowering technique and dose optimization was utilized. FINDINGS: Inferior thorax: No significant abnormality is seen. Liver: It is mildly fatty infiltrated. There is a very tiny low-density structure in the lateral right lobe of the liver best seen on axial image 30 and coronal image 77. This could represent a tiny cyst or hemangioma. It is much too small to characterize. Gallbladder: The gallbladder is present. There are no radiopaque gallstones. Pancreas: Within normal limits. Spleen: Normal in size and appearance. Adrenal glands: There are no masses seen. Kidneys: There is no hydronephrosis seen on either side. No urinary tract stones are seen. There are no suspicious masses seen. GI tract: The cecum is probably mobile on a mesentery, as it is swung medially, with the appendix lying in the midline posterior to the cecum. Terminal ileum/involved area appears somewhat globular with some degree of wall thickening believed to be present in the TI and cecum. There is another loop of small bowel which is inseparable from the cecum at its superior and anterior wall. This is best seen on images 33 through 44 of the coronals. The descending colon is medial to multiple loops of small bowel. A piece of sigmoid colon appears tethered to the superior uterus with stretching and thinning of the lumen to the right of midline. This is best seen on images 86 through 89 of the axials. It lies in the right lower quadrant. There is a large amount of fecal material in the colon. Major vessels: The major vessels are normal in caliber. Sex specific pelvic organs: No significant abnormality is seen. Bladder: The bladder appears normal. Bones: Within normal limits for the patient's age. IMPRESSION: Colonic findings as described. Recommend scanning with positive oral contrast, delayed until the colon is opacified. Reviewed, dictated and finalized at location A. MOBILE SALESMAN
[2025-02-19 13:21] LABS: Estimated Glomerular Filt Rate > 60
== END 2025-02-19 12:42 | disposition home or self-care (01) ==
PROVIDERS: PCP Psychiatry & Neurology Neurology; Visit Provider Physician Assistant
DX: R32 Unspecified urinary incontinence (principal); R10.9 Unspecified abdominal pain; K76.0 Fatty (change of) liver, not elsewhere classified
CPT/HCPCS: 74177; Q9967